=== PATIENT | female | born 1975 | race Caucasian/White ===

== ENCOUNTER 2018-01-17 21:39 | Emergency (ER) | payer OTHER ==
[2018-01-17 21:53] VITALS: TEMP 97.7
[2018-01-17] MEDS ORDERED: ONDANSETRON 4 MG/2 ML VIAL IVP ONE (22:45)
[2018-01-17 22:51] LABS: PLATELET COUNT 302 10^3/uL (150-400)
[2018-01-17] MEDS ORDERED: HYDROmorphONE/DILAUDID 1 MG/ML INJ IVP ONE (22:54)
[2018-01-17] MEDS ORDERED: NS 1,000 ML IV ONE (22:55)
[2018-01-17] MEDS ORDERED: HYDROmorphONE/DILAUDID 2 MG/ML INJ ONE (22:57)
[2018-01-17] MEDS ORDERED: FAMOTIDINE 20 MG/NACL 50 ML IV ONE (23:32)
--- NOTE | 2018-01-17 23:32 | EDPHY ---
H & P Stated Complaint: LUQ ABD PAIN/RADIATING TO L BACK Time Seen by Provider: 01/17/18 23:19 HPI/ROS: HPI The patient presents with upper abdominal pain which began just after finishing dinner at about 7:00 p.m. Tonight. The pain is in her epigastrium and left upper quadrant and radiates toward her back. It built to its max intensity over about 15 min and then continued. It was very severe and felt similar in nature to the pain that she has had with her ureterolithiasis in the past. The pain was associated with about 15 episodes of nonbloody nonbilious emesis. The pain was constant and is somewhat improved now after receiving a dose of Dilaudid. She has never had this pain before but does report occasional epigastric pain in the evenings. She has been feeling well earlier today.. REVIEW OF SYSTEMS Constitutional: No fever, no chills. Eyes: No discharge. ENT: No sore throat. Cardiovascular: No chest pain, no palpitations. Respiratory: No cough, no shortness of breath. Gastrointestinal: See HPI Genitourinary: No hematuria. Musculoskeletal: No back pain. Skin: No rashes. Neurological: No headache. PMHx: History of kidney stones Soc Hx: Housed PHYSICAL General Appearance: Alert, no distress Eyes: Pupils equal and round no pallor or injection ENT, Mouth: Mucous membranes moist Respiratory: There are no retractions, lungs are clear to auscultation Cardiovascular: Regular rate and rhythm Gastrointestinal: Abdomen is soft and tender in the epigastrium and left upper quadrant Neurological: A&O, moves all extremities Skin: Warm and dry, no rashes Musculoskeletal: Neck is supple non tender Extremities: symmetrical, full range of motion Psychiatric: Patient is oriented X 3, there is no agitation Source: Patient Exam Limitations: No limitations - Personal History LMP (Females 10-55): Now Current Tetanus Diphtheria and Acellular Pertussis (TDAP): Yes - Medical/Surgical History Hx Asthma: No Hx Chronic Respiratory Disease: No Hx Diabetes: No Hx Cardiac Disease: No Hx Renal Disease: No Hx Cirrhosis: No Hx Alcoholism: No Hx HIV/AIDS: No Hx Splenectomy or Spleen Trauma: No Other PMH: 5 KNEE SX GILMAR, 2 , KIDNEY STONE REMOVAL - Social History Smoking Status: Never smoked Constitutional: Initial Vital Signs Temperature (C) 36.5 C 01/17/18 21:51 Heart Rate 68 01/17/18 21:51 Respiratory Rate 18 01/17/18 21:51 Blood Pressure 185/133 H 01/17/18 21:51 O2 Sat (%) 97 01/17/18 21:51 O2 Delivery Mode Room Air O2 (L/minute) 2 Allergies/Adverse Reactions: No Known Allergies Allergy (Verified 01/17/18 21:50) Home Medications: Medication Instructions Recorded Control 01/17/18 Famotidine [Pepcid 20 MG (*)] 20 mg PO BID #30 tab 01/18/18 Medical Decision Making - Diagnostics Imaging Results: CT abdomen pelvis shows no acute changes, discussed with the on-call radiologist. Imaging: Discussed imaging studies w/ call person Radiologist Differential Diagnosis: This is a 42-year-old female with history of ureterolithiasis who presents with severe epigastric and left upper quadrant abdominal pain that radiated to her back after eating dinner tonight associated with nausea and vomiting. Differential diagnosis includes pancreatitis, gastritis, biliary colic, cholecystitis. In the emergency department, IV line was established and patient was given fluids, antiemetics and pain medication with some improvement in her symptoms. Labs were checked and were unremarkable. On reassessment she continued to have pain and tenderness in the epigastrium. Because of this, CT scan was ordered. This was unremarkable for any gallstones , perforated gastric ulcer, complications of pancreatitis. Patient was reassessed again and her pain had improved significantly. I feel she is likely suffering from gastritis. I will discharge her home with famotidine and have her follow up with her primary care doctor. She may require PPI a for pain continues. I have counseled her on dietary changes. - Data Points Laboratory Results: Laboratory Results 01/17/18 22:27 01/17/18 22:27 01/17/18 01/17/18 01/17/18 22:27 22:27 22:27 WBC RBC Hgb Hct MCV MCH MCHC RDW Plt Count MPV Neut % (Auto) Lymph % (Auto) [place] % (Auto) Eos % (Auto) Baso % (Auto) Nucleat RBC Rel Count Absolute Neuts (auto) Absolute Lymphs (auto) Absolute Monos (auto) Absolute Eos (auto) Absolute Basos (auto) Absolute Nucleated RBC Immature Gran % Immature Gran # Sodium 140 mEq/L mEq/L (135-145) Potassium 3.9 mEq/L mEq/L (3.5-5.2) Chloride 105 mEq/L mEq/L (97-110) Carbon Dioxide 25 mEq/l mEq/l (22-31) Anion Gap 10 mEq/L mEq/L (8-16) BUN 15 mg/dL mg/dL (7-23) Creatinine 0.8 mg/dL mg/dL (0.6-1.0) Estimated GFR > 60 Glucose 111 mg/dL H mg/dL (70-100) Calcium 10.1 mg/dL mg/dL (8.5-10.4) Total Bilirubin 0.3 mg/dL mg/dL (0.1-1.4) Conjugated Bilirubin 0.3 mg/dL mg/dL (0.0-0.5) Unconjugated Bilirubin 0.0 mg/dL mg/dL (0.0-1.1) AST 20 IU/L IU/L (14-46) ALT 34 IU/L IU/L (9-52) Alkaline Phosphatase 59 IU/L IU/L (38-126) Total Protein 7.0 g/dL g/dL (6.3-8.2) Albumin 4.0 g/dL g/dL (3.5-5.0) Lipase 104 IU/L IU/L (23-300) Beta HCG, Qual NEGATIVE Urine Color Urine Appearance Urine pH Ur Specific [place] Urine Protein Urine Ketones Urine Blood Urine Nitrate Urine Bilirubin Urine Urobilinogen Ur Leukocyte Esterase Urine RBC Urine WBC Ur Epithelial Cells Hyaline Casts Urine Mucus Urine Glucose 01/17/18 01/17/18 22:27 22:15 WBC 7.75 10^3/uL 10^3/uL (3.80-9.50) RBC 4.92 10^6/uL 10^6/uL (4.18-5.33) Hgb 14.1 g/dL g/dL (12.6-16.3) Hct 41.3 % % (38.0-47.0) MCV 83.9 fL fL (81.5-99.8) MCH 28.7 pg pg (27.9-34.1) MCHC 34.1 g/dL g/dL (32.4-36.7) RDW 13.2 % % (11.5-15.2) Plt Count 302 10^3/uL 10^3/uL (150-400) MPV 9.1 fL fL (8.7-11.7) Neut % (Auto) 58.6 % % (39.3-74.2) Lymph % (Auto) 29.2 % % (15.0-45.0) [place] % (Auto) 5.9 % % (4.5-13.0) Eos % (Auto) 5.7 % % (0.6-7.6) Baso % (Auto) 0.3 % % (0.3-1.7) Nucleat RBC Rel Count 0.0 % % (0.0-0.2) Absolute Neuts (auto) 4.55 10^3/uL 10^3/uL (1.70-6.50) Absolute Lymphs (auto) 2.26 10^3/uL 10^3/uL (1.00-3.00) Absolute Monos (auto) 0.46 10^3/uL 10^3/uL (0.30-0.80) Absolute Eos (auto) 0.44 10^3/uL H 10^3/uL (0.03-0.40) Absolute Basos (auto) 0.02 10^3/uL 10^3/uL (0.02-0.10) Absolute Nucleated RBC 0.00 10^3/uL 10^3/uL (0-0.01) Immature Gran % 0.3 % % (0.0-1.1) Immature Gran # 0.02 10^3/uL 10^3/uL (0.00-0.10) Sodium Potassium Chloride Carbon Dioxide Anion Gap BUN Creatinine Estimated GFR Glucose Calcium Total Bilirubin Conjugated Bilirubin Unconjugated Bilirubin AST ALT Alkaline Phosphatase Total Protein Albumin Lipase Beta HCG, Qual Urine Color YELLOW Urine Appearance CLEAR Urine pH 5.0 (5.0-7.5) Ur Specific [place] 1.019 (1.002-1.030) Urine Protein 1+ H (NEGATIVE) Urine Ketones NEGATIVE (NEGATIVE) Urine Blood 2+ H (NEGATIVE) Urine Nitrate NEGATIVE (NEGATIVE) Urine Bilirubin NEGATIVE (NEGATIVE) Urine Urobilinogen NEGATIVE EU EU (0.2-1.0) Ur Leukocyte Esterase NEGATIVE (NEGATIVE) Urine RBC 1-3 /hpf /hpf (0-3) Urine WBC 1-3 /hpf /hpf (0-3) Ur Epithelial Cells TRACE /lpf /lpf (NONE-1+) Hyaline Casts 5-15 /lpf /lpf (0-1) Urine Mucus TRACE /lpf /lpf (NONE-1+) Urine Glucose NEGATIVE (NEGATIVE) Medications Given: Discontinued Medications Hydromorphone HCl (Dilaudid) 0.5 mg IVP EDNOW ONE Stop: 01/17/18 22:55 Last Admin: 01/17/18 22:59 Dose: 0.5 mg Hydromorphone HCl (Dilaudid) 0.5 mg IVP EDNOW ONE Stop: 01/18/18 00:24 Last Admin: 01/18/18 00:37 Dose: 0.5 mg Sodium Chloride (Ns) 1,000 mls @ 0 mls/hr IV ONCE ONE PRN Reason: Wide Open Stop: 01/17/18 22:56 Last Admin: 01/17/18 22:59 Dose: 1,000 mls Famotidine/Sodium Chloride (Pepcid 20 Mg (Premix)) 50 mls @ 200 mls/hr IV EDNOW ONE Stop: 01/17/18 23:46 Last Admin: 01/17/18 23:52 Dose: 50 mls Ondansetron HCl (Zofran) 4 mg IVP EDNOW ONE Stop: 01/17/18 22:46 Last Admin: 01/17/18 22:51 Dose: 4 mg Departure - Departure Disposition: Home, Routine, Self-Care Clinical Impression: Upper abdominal pain Condition: Good Instructions: Gastritis (ED), Diet for Stomach Ulcers and Gastritis (ED) Additional Instructions: Please return to the emergency department if your worse in any way. Please make sure to maintain a bland diet until your feeling better. Referrals: Carisa Lora MD [Primary Care Provider] - As per Instructions Acosta Cuello MD [Medical Doctor] - As per Instructions Prescriptions: Famotidine [Pepcid 20 MG (*)] 20 mg PO BID #30 tab
[2018-01-17 23:55] VITALS: RESP 18
[2018-01-18] MEDS ORDERED: HYDROmorphONE/DILAUDID 2 MG/ML INJ IVP ONE (00:23)
[2018-01-18] MEDS ORDERED: IOPAMIDOL (ISOVUE-300) 100 ML BTL ONE (00:26)
[2018-01-18 01:31] VITALS: BP 150/93; PULSE 63; O2SAT 92
== END 2018-01-18 02:00 | disposition home or self-care (01) ==
DX: R10.12 Left upper quadrant pain (principal)
CPT/HCPCS: 96374; J1170; J2405; Q9967

== ENCOUNTER 2018-03-15 20:20 | Emergency (ER) | payer OTHER ==
--- NOTE | 2018-03-15 20:40 | EDPHY ---
General - History Smoking Status: Never smoked Time Seen by Provider: 03/15/18 20:34 Narrative: CHIEF COMPLAINT: Leg pain HISTORY OF PRESENT ILLNESS: Patient presents with complaints of left leg pain and swelling. She 1st noticed this on Tuesday. This was after returning from a flight from [place]. She has been in for 3 days. First started in the thigh and now spread to the back of the left knee. It is moderate and described as a pressure. She has some swelling. No redness or warmth. No pain in the calf. She does feel as though the leg is tight. No trauma or injury. No history of venous thrombolic event, but is concern for DVT. She does take oral contraceptive pills. No chest pain of any kind. No other associated complaints or modifying factors. REVIEW OF SYSTEMS: Ten systems reviewed and are negative unless otherwise noted in the HPI PCP: Dr. Carisa Meza SPECIALISTS: None PAST MEDICAL HISTORY: Orthopedic injuries PAST SURGICAL HISTORY: Multiple knee surgeries SOCIAL HISTORY: Never smoker. Lives independently with his spouse. FAMILY HISTORY: Noncontributory EXAMINATION General Appearance: Alert, no distress Head: normocephalic, atraumatic Eyes: Pupils equal and round, no conjunctival pallor or injection ENT, Mouth: Mucous membranes moist Neck: Normal inspection, supple, non-tender Respiratory: Lungs are clear to auscultation Cardiovascular: Regular rate and rhythm. No murmur Gastrointestinal: Abdomen is soft and nontender Back: non-tender, no bony abnormalities Neurological: A&O, nonfocal, normal gait Skin: Warm and dry, no rash no petechiae or purpura. No cellulitis Extremities: Nontender, mild left calf edema with minimal circumference discrepancy. There is no erythema. Negative [place]. No palpable cords. There is tenderness to the left thigh and to the popliteal fossa on the left. Range of motion extremities symmetric. Psychiatric: Mood and affect normal DIFFERENTIAL DIAGNOSES: Including but not limited to DVT, Alcantar cyst, muscle spasm MDM: 8:40 p.m. Left leg pain and pressure since Tuesday morning. Patient is concern for possible DVT. Her vital signs are within normal limits. She does have risk factors for DVT including recent travel and oral contraceptive use. I have ordered laboratory studies and ultrasound to rule out DVT. She is in no acute distress. Vital signs are within normal limits. 9:10 p.m. CBC and chemistry are within normal limits. Ultrasound is pending. 10:20 p.m. Notified by radiologist Dr. Dawkins. There is extensive DVT of the left lower extremity from the proximal femoral vein down to both peroneal. The common femoral is not involved. Patient is in no acute distress. Her pain is minimal. I discussed with Dr. alfonso, and we will consult interventional radiology for their input on treatment. 10:40 p.m. I discussed the case with the on-call interventional radiologist Dr. Todd. He informed me that there is no indication for direct lysis given her history and ultrasound findings. He recommends that we consider with our routine therapy. I discussed with Dr. Alfonso, and she agrees with treatment with Xarelto. I have ordered the 1st dose here. She will need 15 mg by mouth twice daily for 21 days and then transition to 20 mg by mouth. I have re-evaluated the patient at this time. She has no complaints of chest pain of any kind. We had a very lengthy discussion regarding the medication, risks, benefits, activities and the importance of follow up with her primary care physician to monitor this. She has verbalized her understanding of this and is comfortable with this plan. SUPERVISION: Patient was independently examined, but I discussed the case with my secondary supervising physician Dr. Alfonso (Obie Gan) Discussion: The patient was evaluated and managed by the Physician Manifest/Order Organizer Print Orders. I discussed the patient's presentation and course with the physician golf course assistant and agree with the evaluation. My co-signature indicates that I have reviewed this chart and I agree with the findings and plan of care as documented. I am the secondary supervising physician. (Kelsey Alfonso) - Objective Vital Signs: Initial Vital Signs Temperature (C) 36.8 C 03/15/18 20:22 Heart Rate 71 03/15/18 20:22 Respiratory Rate 16 03/15/18 20:22 Blood Pressure 152/104 H 03/15/18 20:22 O2 Sat (%) 96 03/15/18 20:22 O2 Delivery Mode Room Air Allergies/Adverse Reactions: No Known Allergies Allergy (Verified 03/15/18 20:24) Home Medications: Medication Instructions Recorded Control 01/17/18 Rivaroxaban [Xarelto 15mg (*)] 15 mg PO BID #42 tab 03/15/18 oxyCODONE HCL/ACETAMINOPHEN 1 each PO Q4-6PRN PRN #13 tablet 05/30/18 [Percocet 5-325 mg Tablet] Laboratory Results: Laboratory Results 03/15/18 20:46 03/15/18 20:46 Medications Given: Discontinued Medications Rivaroxaban (Xarelto) 15 mg PO BIDMEAL [facility] Stop: 09/12/18 07:59 Last Admin: 03/15/18 23:00 Dose: 15 mg Departure - Departure Disposition: Home, Routine, Self-Care Clinical Impression: Deep venous thrombosis of left profunda femoris vein, Deep venous thrombosis ( DVT) of left peroneal vein Deep vein thrombosis (DVT) of popliteal vein of left lower extremity Qualifiers: Chronicity: acute Qualified Code(s): I82.432 - Acute embolism and thrombosis of left popliteal vein Condition: Good Instructions: Rivaroxaban (By mouth), Deep Vein Thrombosis (ED) Additional Instructions: 1. Xarelto 15 mg by mouth twice daily for 21 days. First dose was given here 2. Contact her primary care physician morning for outpatient management 3. Return to the emergency department immediately if he developed any chest pain of any kind, shortness of breath or difficulty breathing 4. Return to the emergency department immediately if you are unable to afford or obtain your Xarelto prescription within 12 hr from discharge Referrals: Carisa Lora MD [Primary Care Provider] - As per Instructions Stand Alone Forms: Work Excuse Prescriptions: oxyCODONE HCL/ACETAMINOPHEN [Percocet 5-325 mg Tablet] 1 each PO Q4-6PRN PRN # 13 tablet PRN Reason: Pain, Breakthrough Rivaroxaban [Xarelto 15mg (*)] 15 mg PO BID #42 tab
[2018-03-15 20:53] LABS: PLATELET COUNT 255 10^3/uL (150-400)
[2018-03-15 21:03] LABS: CREATINE KINASE 47 IU/L (0-156)
[2018-03-15] MEDS ORDERED: RIVAROXABAN 15 MG TAB ONE (22:55)
[2018-03-15 23:04] VITALS: BP 148/89
[2018-03-16] MEDS ORDERED: RIVAROXABAN 15 MG TAB PO SCH (08:00)
== END 2018-03-15 23:04 | disposition home or self-care (01) ==
DX: I82.432 Acute embolism and thrombosis of left popliteal vein (principal); I82.412 Acute embolism and thrombosis of left femoral vein; Z79.01 Long term (current) use of anticoagulants

== ENCOUNTER → 2018-06-21 | Outpatient (CLI) | payer OTHER | LOC: FIMAGING 09:12 | PROVIDERS: ATTEND Family Medicine | DX: I82.412 Acute embolism and thrombosis of left femoral vein (principal); I82.432 Acute embolism and thrombosis of left popliteal vein ==

== ENCOUNTER 2018-09-07 20:52 | Observation (INO) | payer OTHER ==
[2018-09-07] MEDS ORDERED: FAMOTIDINE 20 MG/NACL 50 ML IV ONE (21:18)
[2018-09-07] MEDS ORDERED: NS 1,000 ML IV ONE (21:18)
--- NOTE | 2018-09-07 21:20 | EDPHY ---
HPI/HX/ROS/PE/MDM Narrative: CLINICAL IMPRESSION: Cholelithiasis ASSESSMENT/PLAN: 43-year-old female presents to the emergency department with approximately 3 hr of epigastric pain, nausea, vomiting. No reported chest pain or shortness of breath, EKG shows normal sinus rhythm, no acute ST or T-wave changes, and was reviewed with Dr. Rose. Troponin negative and chest x-ray with no acute cardiopulmonary changes. Labs show a mild elevation of ALT at 61 remainder of liver enzymes are normal. No leukocytosis. Right upper quadrant ultrasound shows a 1.6 cm gallstone lodged in the gallbladder neck, common bile duct measures 6 mm, no wall thickening. Case was discussed with Dr. Torres who came to the emergency department to evaluate the patient, and a decision was made to take the patient to the operating room tonight for cholecystectomy. Patient was stabilized in the emergency department prior to transfer to operating room. DIFFERENTIAL DX: Differential diagnosis includes but not limited to acute cholecystitis, cholelithiasis, acute pancreatitis, gastritis, gastroenteritis, GERD, ACS ED PROCEDURES: Please see lab and ultrasound results below ED COURSE: 10:14 p.m.: Patient reassessed, feeling pain-free at this time after fentanyl. Lab, EKG and imaging results distended or right upper quadrant which she agrees to. 11:11 p.m.: Dr. Vera called. Patient has a 1.6 cm gallstone lodged in the gallbladder neck, common bile duct measuring 6 mm, no wall thickening. CHIEF COMPLAINT: Epigastric abdominal pain HPI: 43-year-old obese female presents to the emergency department with relatively acute onset of epigastric abdominal pain associated with nausea and vomiting shortly after eating tonight. Patient has been symptomatic for approximately 2 hr. Pain radiates to her back and into the left shoulder. No reported fever or chills. No change in bowel habits. She denies chest pain and shortness of breath. No history of prior abdominal surgery, aside from . No reported cardiac history. She had a DVT in February of this year after air travel, treated on Xarelto until June. She is currently off anticoagulants PMH: GERD, history of DVT, history of nephrolithiasis Pertinent Past Surgical History: C-sections Family History: Patient's father of [place] at age 55 Social History: Nonsmoker REVIEW OF SYSTEMS: All other systems negative Constitutional: No fever, no chills, appetite change. Cardiovascular: No chest pain, no palpitations. Respiratory: No cough, no shortness of breath. Gastrointestinal: +abdominal pain, +vomiting, diarrhea. Genitourinary: No hematuria, dysuria, flank pain, pelvic pain Musculoskeletal: No back pain, joint swelling, joint pain, myalgias. Skin: No rashes, color change. Neurological: No headache, dizziness, weakness. PHYSICAL EXAM: General Appearance: Alert, oriented, appropriate, cooperative, NAD, well hydrated, non-toxic appearing, VSS, no hypoxia. Respiratory: There are no retractions, lungs are clear to auscultation. Cardiac: Regular rate and rhythm, no murmurs or gallops. Gastrointestinal: Abdomen is soft, epigastric tenderness to palpation bowel sounds normal, no masses/hernia, no rigidity, guarding or focal peritoneal findings. Neurological: Alert and oriented x 3, CN 2-12 grossly intact Skin: Warm, dry, no rashes, no nodules on palpation. Musculoskeletal: Extremities are symmetrical, full range of motion, no tenderness, deformity, swelling, or erythema. Psychiatric: Patient is oriented X 3, there is no agitation. MEDICAL DECISION MAKING: Patient was seen independently. Secondary supervising physician at time of evaluation was Dr. Rose. Diagnosis: Cholelithiasis. New, requires workup Summary: See Assessment and Plan for summary of ED visit Clinical lab tests: ordered / reviewed. Independent visualization of images, tracing, or specimens: Yes. Discussed patient with another provider: Dr. Joshua Norwood, Dr. Torres Patient Progress: Stable. (Jerald Priest) ED Course: The patient was evaluated and managed by the Physician Box Coverer Hand. I discussed the patient's presentation and course with the midlevel provider with them and agree with the evaluation. My co-signature indicates that I have reviewed this chart and I agree with the findings and plan of care as documented. I am the secondary supervising physician. (Kelsey Rose) - Data Points Laboratory Results: Laboratory Results 09/07/18 21:20 09/07/18 21:20 Medications Given: Discontinued Medications Bupivacaine HCl/Epinephrine Bitart (Bupivacaine/Epi) Confirm Administered Dose 30 ml .ROUTE .STK-MED ONE Stop: 09/08/18 00:02 Last Admin: 09/08/18 01:14 Dose: 30 ml Enoxaparin Sodium (Lovenox) 40 mg SC BID ARMAAN Stop: 03/07/19 08:59 Last Admin: 09/08/18 08:37 Dose: 40 mg Fentanyl (Sublimaze) 50 mcg IVP EDNOW ONE Stop: 09/07/18 21:53 Last Admin: 09/07/18 22:01 Dose: 50 mcg Fentanyl (Sublimaze) 50 mcg IVP EDNOW ONE Stop: 09/08/18 00:17 Last Admin: 09/08/18 00:18 Dose: 50 mcg Fentanyl (Sublimaze) 25 - 100 mcg IVP Q5M PRN PRN Reason: PACU, IMMEDIATE Pain control Stop: 09/08/18 02:45 Last Admin: 09/08/18 02:20 Dose: 50 mcg Sodium Chloride (Ns) 1,000 mls @ 0 mls/hr IV EDNOW ONE; Wide Open PRN Reason: Protocol Stop: 09/07/18 21:19 Last Admin: 09/07/18 21:25 Dose: 1,000 mls Famotidine/Sodium Chloride (Pepcid 20 Mg (Premix)) 50 mls @ 200 mls/hr IV EDNOW ONE Stop: 09/07/18 21:32 Last Admin: 09/07/18 21:25 Dose: 50 mls Cefazolin Sodium/Dextrose (Ancef) 100 mls @ 200 mls/hr IV EDNOW ONE PRN Reason: Protocol Stop: 09/08/18 00:31 Last Admin: 09/08/18 00:06 Dose: 100 mls Potassium Chloride/Dextrose/Sod Cl (D5w 1/2 Ns W/ 20 Kcl/L) 1,000 mls @ 125 mls /hr IV CONT ARMAAN Stop: 03/07/19 01:59 Last Admin: 09/08/18 03:52 Dose: 1,000 mls Ibuprofen (Motrin) 600 mg PO Q8HRS ARMAAN Stop: 03/07/19 05:59 Last Admin: 09/08/18 06:21 Dose: 600 mg Midazolam HCl (Versed) 2 mg IVP ONCALL ONE Stop: 09/08/18 00:26 Last Admin: 09/08/18 00:48 Dose: 2 mg Oxycodone HCl (Oxycodone Ir) 5 - 10 mg PO Q4HRS PRN PRN Reason: Pain, Severe Able to Take PO Stop: 09/18/18 01:53 Last Admin: 09/08/18 07:46 Dose: 5 mg Point of Care Test Results: Chemistry 09/07/18 21:24 POC Troponin I 0.00 ng/mL ng/mL (0.00-0.08) General Time Seen by Provider: 09/07/18 21:04 Initial Vital Signs: Initial Vital Signs Temperature (C) 37 C 09/07/18 20:56 Heart Rate 62 09/07/18 20:56 Respiratory Rate 16 09/07/18 20:56 Blood Pressure 159/84 H 09/07/18 20:56 O2 Sat (%) 97 09/07/18 20:56 O2 Delivery Mode Room Air Allergies/Adverse Reactions: No Known Allergies Allergy (Verified 09/07/18 21:00) Home Medications: Medication Instructions Recorded Famotidine [Pepcid 20 MG (*)] 20 - 40 mg PO BID #0 09/07/18 oxyCODONE IR [Oxycodone Ir (*)] 5 - 10 mg PO Q4HRS PRN #10 tab 09/08/18 Departure - Departure Disposition: To OP Cath/Surgery Clinical Impression: Epigastric abdominal pain Cholelithiasis Qualifiers: Cholelithiasis location: gallbladder Cholecystitis presence: without cholecystitis Biliary obstruction: with biliary obstruction Qualified Code(s): K80.21 - Calculus of gallbladder without cholecystitis with obstruction Nausea and vomiting Qualifiers: Vomiting type: unspecified Vomiting Intractability: non-intractable Qualified Code(s): R11.2 - Nausea with vomiting, unspecified Condition: Good
[2018-09-07 21:31] LABS: PLATELET COUNT 322 10^3/uL (150-400)
[2018-09-07] MEDS ORDERED: fentaNYL 100 MCG/2 ML INJ IVP ONE (21:52)
[2018-09-08] MEDS ORDERED: BUPIVACAINE/EPI 0.25% 30 ML SDV ONE (00:01)
[2018-09-08] MEDS ORDERED: ceFAZolin 2 GM/DEXTROSE 100 ML IV ONE (00:02)
[2018-09-08] MEDS ORDERED: CEFAZOLIN 1 GM/DEXTROSE/50 ML BAG IV ONE (00:04)
[2018-09-08] MEDS ORDERED: fentaNYL 100 MCG/2 ML INJ IVP ONE (00:16)
[2018-09-08] MEDS ORDERED: fentaNYL 100 MCG/2 ML INJ ONE ×3 (00:16→02:12)
[2018-09-08] MEDS ORDERED: PROPOFOL 200 MG/20 ML VIAL ONE (00:20)
[2018-09-08] MEDS ORDERED: DEXAMETHASONE 4 MG/ML VIAL ONE ×2 (00:21)
[2018-09-08] MEDS ORDERED: ROCURONIUM 50 MG/5 ML VIAL ONE (00:21)
[2018-09-08] MEDS ORDERED: LIDOCAINE 2% 5 ML SDV ONE (00:21)
--- NOTE | 2018-09-08 00:23 | PDANEPAE ---
ANE History of Present Illness Cholelithiasis ANE Past Medical History - Cardiovascular History Hx Hypertension: No Hx Arrhythmias: No Hx Chest Pain: No Hx Coronary Artery / Peripheral Vascular Disease: No Hx CHF / Valvular Disease: No Hx Palpitations: No - Pulmonary History Hx COPD: No Hx Asthma/Reactive Airway Disease: No Hx Recent Upper Respiratory Infection: No Hx Oxygen in Use at Home: No Hx Sleep Apnea: No - Endocrine History Hx Diabetes: No Hypothyroid: No Hyperthyroid: No Obesity: yes, severe - Renal History Hx Renal Disorders: No - Neurological & Psychiatric Hx Hx Neurological and Psychiatric Disorders: No ANE Review of Systems Review of systems is: negative Review of Systems: - Exercise capacity Exercise capacity: >=4 METS ANE Patient History - Allergies Allergies/Adverse Reactions: No Known Allergies Allergy (Verified 09/07/18 21:00) - Home Medications Home Medications: Pepcid 09/07/18 [Last Taken Unknown] - Anes Hx Anes Hx: no prior problems - Smoking Hx Smoking Status: Never smoked - Family Anes Hx Family Anes Hx: none ANE Labs/Vital Signs - Labs Result Diagrams: 09/07/18 21:20 09/07/18 21:20 - Vital Signs Blood Pressure: 147/88 Heart Rate: 71 Respiratory Rate: 20 O2 Sat (%): 99 Weight: 111.13 kg ANE Physical Exam - Airway Neck exam: FROM Mallampati Score: Class 2 Mouth exam: normal dental/mouth exam - Pulmonary Pulmonary: no respiratory distress - Cardiovascular Cardiovascular: regular rate and rhythym - ASA Status ASA Status: III, E ANE Anesthesia Plan Anesthesia Plan: general endotracheal anesthesia
[2018-09-08] MEDS ORDERED: MIDAZOLAM 2 MG/2 ML VIAL IVP ONE (00:25)
--- NOTE | 2018-09-08 00:43 | PDGENHP ---
History and Physical - Chief Complaint abdominal pain - History of Present Illness Otherwise healthy 43yo F presents c recurrent epigastric and LUQ pain. Has had pain similar in the last year, each episode self limited. Endorses epigastric pain with radiation to the L shoulder. She has been nauseated and has vomited. 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, 2 kids Review of Systems Review of Systems: ROS: 10pt was reviewed & negative except for what was stated in HPI & below Physical Exam Physical Exam: Temp Pulse Resp BP Pulse Ox 37 C 71 20 147/88 H 99 09/07/18 20:56 09/08/18 00:23 09/08/18 00:23 09/08/18 00:23 09/08/18 00:23 Constitutional: no apparent distress, appears nourished, not in pain Eyes: PERRL, anicteric sclera, EOMI Ears, Nose, Mouth, Throat: moist mucous membranes, hearing normal, ears appear normal, no oral mucosal ulcers Cardiovascular: regular rate and rhythym, no murmur, rub, or gallop, No edema Respiratory: no respiratory distress, no rales or rhonchi, clear to auscultation Gastrointestinal: normoactive bowel sounds, other (soft, TTP in the epigsatrium , negative [place] ) Genitourinary: no bladder fullness, no bladder tenderness Skin: warm, normal color, no rashes or abrasions, no fluctuance, no induration, No mottled Musculoskeletal: full muscle strength, no muscle tenderness, normal joint ROM, no joint effusions Psychiatric: interacting appropriately, not anxious, not encephalopathic, thought process linear Lymph, Heme, Immunologic: no cervical LAD, no supraclavicular LAD Lab Data & Imaging Review 09/07/18 21:20 09/07/18 21:20 WBC 8.01 10^3/uL (3.80-9.50) 09/07/18 21:20 RBC 5.04 10^6/uL (4.18-5.33) 09/07/18 21:20 Hgb 13.5 g/dL (12.6-16.3) 09/07/18 21:20 Hct 41.5 % (38.0-47.0) 09/07/18 21:20 MCV 82.3 fL (81.5-99.8) 09/07/18 21:20 MCH 26.8 pg (27.9-34.1) L 09/07/18 21:20 MCHC 32.5 g/dL (32.4-36.7) 09/07/18 21: RDW 13.6 % (11.5-15.2) 09/07/18: Plt Count 322 10^3/uL (150-400) 09/07/18 21:20 MPV 9.1 fL (8.7-11.7) 09/07/18 21:20 Neut % (Auto) 71.5 % (39.3-74.2) 09/07/18 21:20 Lymph % (Auto) 19.2 % (15.0-45.0) 09/07/18 21:20 [place] % (Auto) 6.9 % (4.5-13.0) 09/07/18 21:20 Eos % (Auto) 2.1 % (0.6-7.6) 09/07/18 21:20 Baso % (Auto) 0.1 % (0.3-1.7) L 09/07/18: Nucleat RBC Rel Count 0.0 % (0.0-0.2) 09/07/18 21:20 Absolute Neuts (auto) 5.72 10^3/uL (1.70-6.50) 09/07/18 21:20 Absolute Lymphs (auto) 1.54 10^3/uL (1.00-3.00) 09/07/18 21:20 Absolute Monos (auto) 0.55 10^3/uL (0.30-0.80) 09/07/18 21:20 Absolute Eos (auto) 0.17 10^3/uL (0.03-0.40) 09/07/18 21:20 Absolute Basos (auto) 0.01 10^3/uL (0.02-0.10) L 09/07/18 21:20 Absolute Nucleated RBC 0.00 10^3/uL (0-0.01) 09/07/18 21:20 Immature Gran % 0.2 % (0.0-1.1) 09/07/18 21:20 Immature Gran # 0.02 10^3/uL (0.00-0.10) 09/07/18 21:20 Sodium 142 mEq/L (135-145) 09/07/18 21:20 Potassium 4.4 mEq/L (3.3-5.0) 09/07/18 21:20 Chloride 106 mEq/L (97-110) 09/07/18 21:20 Carbon Dioxide 26 mEq/l (22-31) 09/07/18 21:20 Anion Gap 10 mEq/L (6-14) 09/07/18 21:20 BUN 17 mg/dL (7-23) 09/07/18 21:20 Creatinine 0.8 mg/dL (0.6-1.0) 09/07/18 21:20 Estimated GFR > 60 09/07/18 21:20 Glucose 104 mg/dL (70-100) H 09/07/18 21:20 Calcium 9.9 mg/dL (8.5-10.4) 09/07/18 21:20 Total Bilirubin 0.3 mg/dL (0.1-1.4) 09/07/18 21:20 Conjugated Bilirubin 0.2 mg/dL (0.0-0.5) 09/07/18 21:20 Unconjugated Bilirubin 0.1 mg/dL (0.0-1.1) 09/07/18 21:20 AST 36 IU/L (14-46) 09/07/18 21:20 ALT 61 IU/L (9-52) H 09/07/18 21:20 Alkaline Phosphatase 76 IU/L (38-126) 09/07/18 21:20 POC Troponin I 0.00 ng/mL (0.00-0.08) 09/07/18 21:24 Total Protein 7.3 g/dL (6.3-8.2) 09/07/18 21:20 Albumin 4.4 g/dL (3.5-5.0) 09/07/18 21:20 Lipase 123 IU/L (23-300) 09/07/18 21:20 Beta HCG, Qual NEGATIVE 09/07/18 21:20 Visualized and Interpreted imaging results: Yes Interpretation: US: stone impacted in the neck, normal GBW, no PCF, normal duct Assessment & Plan Assessment: Cholelithiasis (Acute) Epigastric abdominal pain (Acute) Nausea and vomiting (Acute) Plan: 43yo F c acute cholecystitis - given her persistent pain and stone lodged in the neck will proceed with surgery. - to OR fo lap micheal, RBA discussed. Abx scientific publications editor to the OR
[2018-09-08] MEDS ORDERED: MIDAZOLAM 2 MG/2 ML VIAL ONE (00:47)
[2018-09-08] MEDS ORDERED: SUGAMMADEX SODIUM 200 MG/2 ML VIAL IVP ONE (01:35)
[2018-09-08] MEDS ORDERED: oxyCODONE IR 5 MG TAB PO PRN (01:44)
[2018-09-08] MEDS ORDERED: ALBUTEROL 3 ML DEYVIAL IH PRN (01:44)
[2018-09-08] MEDS ORDERED: PROMETHAZINE HCL 25 MG/ML INJ IVP PRN (01:44)
[2018-09-08] MEDS ORDERED: HYDROmorphONE/DILAUDID 2 MG/ML INJ IVP PRN (01:44)
[2018-09-08] MEDS ORDERED: LR 500 ML IV PRN (01:44)
[2018-09-08] MEDS ORDERED: NALOXONE HCL 0.4 MG/ML INJ IVP PRN (01:44)
[2018-09-08] MEDS ORDERED: LABETALOL HCL 20 MG/4 ML INJ IVP PRN (01:44)
[2018-09-08] MEDS ORDERED: MEPERIDINE 25 MG/0.5 ML AMP IVP PRN (01:44)
[2018-09-08] MEDS ORDERED: ACETAMINOPHEN 500 MG TAB PO PRN (01:44)
[2018-09-08] MEDS ORDERED: ONDANSETRON 4 MG/2 ML VIAL IVP PRN (01:54)
[2018-09-08] MEDS ORDERED: ACETAMINOPHEN 325 MG TAB PO PRN (01:54)
[2018-09-08] MEDS ORDERED: HYDROmorphONE/DILAUDID 1 MG/ML INJ IVP PRN (01:54)
--- NOTE | 2018-09-08 01:54 | POSTOPPROG ---
Post Op Note Date of Operation: 09/08/18 Surgeon: Devon Torres Anesthesiologist: Michael Anesthesia: GET(General Endotracheal) Pre-op Diagnosis: cholecystitis Post-op Diagnosis: same Procedure: Laparoscopic cholecystectomy Findings: inflamed, edematous GB wall, critical view Inf/Abcess present in the surg proc area at time of surgery?: No EBL: Minimal Total fluids administered: 1000cc NS washout Specimen(s): GB
[2018-09-08] MEDS ORDERED: D5W 1/2 NS W/ 20 KCl/L 1,000 ML IV SCH (02:00)
--- NOTE | 2018-09-08 02:02 | POSTANESTH ---
Post Anesthetic Evaluation Cardiovascular Status: Normal, Stable Respiratory Status: Normal, Stable Level of Consciousness/Mental Status: Can Participate in Eval Pain Control: Adequate, Prn Tx Ordered Nausea/Vomiting Control: Adequate, Prn Tx Ordered Complications Possibly Related to Anesthesia: None Noted
[2018-09-08] MEDS: fentaNYL 100 MCG/2 ML INJ IVP PRN ×2 (02:12→02:20)
[2018-09-08] MEDS: oxyCODONE IR 5 MG TAB PO PRN ×2 (03:42→07:46)
--- NOTE | 2018-09-08 05:16 | GOP ---
DATE OF OPERATION: 09/08/2018 SURGEON: Devon Torres MD CUTTING MACHINE FIXER: None. ANESTHESIA: General endotracheal. ANESTHESIOLOGIST: Rogers Rodriguez MD. PREOPERATIVE DIAGNOSIS: Cholecystitis. POSTOPERATIVE DIAGNOSIS: Cholecystitis. PROCEDURE PERFORMED: Laparoscopic cholecystectomy. FINDINGS: Edematous gallbladder wall with hydropic bile. Critical view obtained. SPECIMENS: Gallbladder. ESTIMATED BLOOD LOSS: 5 cc. DESCRIPTION OF PROCEDURE: The patient was greeted in the preoperative suite. Once again, risks, carter efits, and alternatives were discussed. Consent was signed. She was brought back to the operative s uite, placed on the OR table in supine position. After all anesthesia machines including SCDs were o n and functioning, [facility] time-out was performed. After successful induction of g eneral anesthesia, the patient's abdomen was prepped and draped in typical sterile fashion. I entere d the abdomen via an infraumbilical cutdown through which the Veress needle was passed. I achieved p neumoperitoneum to 15 mmHg through which a 12 mm Visiport was placed. Once successfully in the abdom en, I placed 3 additional 5 mm trocars, 1 in the subxiphoid, 2 in the right upper quadrant, all under direct visualization. I identified the gallbladder. The wall was tense and edematous. In order to successfully retract it over the liver edge, I needed to drain it. I successfully drained out what appeared to be clear hydropic bile. Once successfully drained, I successfully retracted it over the liver edge. There were multiple omental and fatty adhesions to the gallbladder wall, which were take n down bluntly. I turned my attention toward the infundibulum via a combination of electrocautery an d blunt dissection. I identified 2 and only 2 structures leading toward the gallbladder. I successf ully first clipped the cystic duct and divided it, and the cystic artery in the same fashion. I then took the gallbladder off the liver bed using electrocautery. It was placed in an EndoCatch bag and removed. The right upper quadrant was then irrigated with a L of sterile saline, noting clear efflue nt in the suction canister. The liver bed was somewhat oozy. It was made hemostatic with [place] hem ostatic powder. Once hemostasis was assured, I infiltrated each port site with local anesthesia. I used the Kendall Thomasen device to successfully close my infraumbilical port site. The skin was then closed with Monocryl over which Dermabond was placed. The patient was then extubated in the operati ve suite and taken to the PACU in satisfactory condition. DRAINS: None. COUNTS: All counts were reported as correct x2. /[id number]/MODL
[2018-09-08] MEDS ORDERED: IBUPROFEN 600 MG TAB PO SCH (06:00)
[2018-09-08 07:44] VITALS: BP 121/75
[2018-09-08] MEDS ORDERED: ENOXAPARIN 40 MG/0.4 ML SYR SC SCH (09:00)
--- NOTE | 2018-09-09 18:52 | CPEKG ---
Test Reason : OPEN Blood Pressure : / mmHG Vent. Rate : 070 BPM Atrial Rate : 070 BPM P-R Int : 165 ms QRS Dur : 092 ms QT Int : 398 ms P-R-T Axes : 017 -09 020 degrees QTc Int : 430 ms Sinus rhythm Low voltage, precordial leads Consider anterior infarct Confirmed by Reilly Ken ([id number]) on 09/09/2018 6:51:52 PM Referred By: Confirmed By:Reilly Ken
== END 2018-09-08 09:04 | disposition home or self-care (01) ==
LOC: FSGY 09-08 00:18 → F3E 09-08 02:31
PROVIDERS: ADMIT Surgery; ATTEND Surgery
PROC: 0FT44ZZ Resection of Gallbladder, Percutaneous Endoscopic Approach (ICD-10-PCS; principal; 2018-09-08 00:30)
DX: K80.10 Calculus of gallbladder with chronic cholecystitis without obstruction (principal)
CPT/HCPCS: 47562; 71046; 76705; 93005; G0378; 84484-PO; 96374; J0690; J1100; J1650; J2250; J2704; J3010